=== PATIENT | female | born 1955 | race Caucasian/White ===

== ENCOUNTER 2019-06-11 18:13 | Inpatient (IN) | payer MEDICARE, OTHER ==
[~2019-06-11] VITALS: Ht 167.6 cm; Wt 68.2 kg
[2019-06-11] MEDS ORDERED: morphine 4 MG/ML inj SYRINge IV ONE (19:15)
[2019-06-11] MEDS ORDERED: ondansetron/PF 4mg/2ml inj IV ONE (19:15)
[2019-06-11] MEDS ORDERED: haloperidol lactate 5mg/ml inj IM ONE (19:55)
--- NOTE | 2019-06-11 20:07 | NUR ---
PATIENT'S DAUGHTER VI CALLED TO CHECK ON STATUS. UPDATE PROVIDED AT THIS TIME. CONTACT NUMBER: [phone]
[2019-06-11 20:28] LABS: BASOPHILS % (AUTO) 0.5 % (0-1); EOSINOPHILS # (AUTO) 0.2 X10'3 (0-0.9); EOSINOPHILS % (AUTO) 1.6 % (0-6); HEMATOCRIT 44.9 % (35.0-45.0); HEMOGLOBIN 15.3 g/dl (12.0-16.0); LYMPHOCYTES # (AUTO) 1.4 X10'3 (1.1-4.8); MEAN CORPUSCULAR HGB CONC 34.1 g/dL (33.0-36.5); MEAN CORPUSCULAR VOLUME 91.1 FL (78-98); MEAN PLATELET VOLUME 7.7 FL (7.4-10.4); MONOCYTES # (AUTO) 0.6 X10'3 (0-0.9); MONOCYTES % (AUTO) 6.6 % (2-12); NEUTROPHILS # (AUTO) 7.3 X10'3 (1.8-7.7); NEUTROPHILS % (AUTO) 76.3 % (42-75); PLATELET COUNT 304 X10'3 (140-440); RED BLOOD COUNT 4.93 X10'6 (4.20-5.60); RED CELL DISTRIBUTION WIDTH 12.7 % (11.5-14.5); WHITE BLOOD COUNT 9.6 X10'3 (4.5-11.0)
[2019-06-11 20:40] LABS: ALANINE AMINOTRANSFERASE 19 U/L (12-78); ALBUMIN 3.5 G/DL (3.4-5.0); ALBUMIN/GLOBULIN RATIO 0.8 (1.1-1.5); ALKALINE PHOSPHATASE 105 IU/L (46-116); ANION GAP 12 (8-16); ASPARTATE AMINO TRANSFERASE 23 U/L (10-37); BILIRUBIN,TOTAL 0.9 MG/DL (0.1-1.0); BLOOD UREA NITROGEN 20 MG/DL (7-18); BUN/CREATININE RATIO 31.3 (6.6-38.0); CALCIUM 9.9 MG/DL (8.5-10.1); CHLORIDE 105 MMOL/L (99-107); CREATININE 0.64 MG/DL (0.40-0.90); GLUCOSE 95 MG/DL (70-104); POTASSIUM 3.5 MMOL/L (3.5-5.1); SODIUM 140 MMOL/L (135-145); TOTAL CARBON DIOXIDE 23.5 MMOL/L (24-32); TOTAL PROTEIN 7.7 G/DL (6.4-8.2); eGFR > 90 ML/MIN
[2019-06-11 20:55] LABS: PARTIAL THROMBOPLASTIN TIME 28 SECONDS (22-32)
[2019-06-11] MEDS ORDERED: iohexol 300mg/ml 100ml inj. ONE (21:24)
[2019-06-11] MEDS ORDERED: LORazepam 2 mg/ml vial IM ONE (21:35)
--- NOTE | 2019-06-11 22:52 | NUR ---
UNABLE TO COMPLETE MED REC PATIENT IS NONCONTRIBUTORY AT THIS TIME. AWARE
[2019-06-11] MEDS ORDERED: acetaminophen 325mg tablet PO PRN (23:00)
[2019-06-11] MEDS ORDERED: albuterol 2.5 MG/3 ML nebule NEB PRN (23:00)
[2019-06-11] MEDS ORDERED: mag hydrox/Alum hydrox/simeth 30ml oral suspension PO PRN (23:00)
[2019-06-11] MEDS ORDERED: morphine 2 MG/ML inj. syringe IV PRN ×2 (23:00)
[2019-06-11] MEDS ORDERED: magnesium hydroxide 30ml (MOM) UD suspension PO PRN (23:00)
[2019-06-11] MEDS ORDERED: ondansetron/PF 4mg/2ml inj IV PRN (23:00)
[2019-06-11] MEDS: normal saline 1000ml 1,000 ML IV SCH (23:41)
[2019-06-12] VITALS (17 sets, daily range): BP systolic 112–175; BP diastolic 58–104
[2019-06-12 06:17] LABS: BASOPHILS # (AUTO) 0.1 X10'3 (0-0.2); BASOPHILS % (AUTO) 0.8 % (0-1); EOSINOPHILS # (AUTO) 0.2 X10'3 (0-0.9); HEMATOCRIT 41.4 % (35.0-45.0); HEMOGLOBIN 14.2 g/dl (12.0-16.0); LYMPHOCYTES # (AUTO) 1.9 X10'3 (1.1-4.8); LYMPHOCYTES % (AUTO) 24.7 % (21-51); MEAN CORPUSCULAR HEMOGLOBIN 31.2 PG (27.0-31.0); MEAN CORPUSCULAR HGB CONC 34.4 g/dL (33.0-36.5); MEAN CORPUSCULAR VOLUME 90.8 FL (78-98); MEAN PLATELET VOLUME 7.7 FL (7.4-10.4); MONOCYTES # (AUTO) 0.7 X10'3 (0-0.9); MONOCYTES % (AUTO) 8.8 % (2-12); NEUTROPHILS # (AUTO) 4.8 X10'3 (1.8-7.7); NEUTROPHILS % (AUTO) 62.7 % (42-75); PLATELET COUNT 262 X10'3 (140-440); RED BLOOD COUNT 4.56 X10'6 (4.20-5.60); RED CELL DISTRIBUTION WIDTH 12.7 % (11.5-14.5); WHITE BLOOD COUNT 7.7 X10'3 (4.5-11.0)
--- NOTE | 2019-06-12 06:21 | NUR ---
REPORT REC'D FROM LARRY BAILEY. PT UP TO FLOOR AND TRANSFERRED TO BED VIA SLIDE BOARD AND FOUR ATTENDANTS. PT IS VERY SEDATE AND UNABLE TO CONTRIBUTE TO ASSESSMENT AND DART ASSESS. PT HAS BEEN GIVEN A BED BATH AND PRE OP PREP FOR POSSIBLE SURGERY TODAY.
--- NOTE | 2019-06-12 06:23 | NUR ---
REPORT GIVEN TO LARRY BRAR.
--- NOTE | 2019-06-12 06:29 | NUR ---
Patient in room ORTHO 4023B. I have received report from LARRY CHATMAN and had the opportunity to ask questions and assume patient care.
[2019-06-12 06:40] LABS: ALANINE AMINOTRANSFERASE 18 U/L (12-78); ALBUMIN 2.7 G/DL (3.4-5.0); ALBUMIN/GLOBULIN RATIO 0.8 (1.1-1.5); ALKALINE PHOSPHATASE 89 IU/L (46-116); ANION GAP 11 (8-16); ASPARTATE AMINO TRANSFERASE 27 U/L (10-37); BILIRUBIN,TOTAL 0.7 MG/DL (0.1-1.0); BLOOD UREA NITROGEN 15 MG/DL (7-18); BUN/CREATININE RATIO 26.3 (6.6-38.0); CALCIUM 8.7 MG/DL (8.5-10.1); CHLORIDE 106 MMOL/L (99-107); CREATININE 0.57 MG/DL (0.40-0.90); GLUCOSE 83 MG/DL (70-104); POTASSIUM 3.8 MMOL/L (3.5-5.1); SODIUM 138 MMOL/L (135-145); TOTAL CARBON DIOXIDE 21.3 MMOL/L (24-32); TOTAL PROTEIN 6.3 G/DL (6.4-8.2); eGFR > 90 ML/MIN
[2019-06-12] MEDS: normal saline 1000ml 1,000 ML IV SCH ×2 (10:38→17:34)
[2019-06-12] MEDS: lisinopril 20mg tablet PO SCH (11:32)
[2019-06-12] MEDS ORDERED: LISI-600 PO (11:43)
[2019-06-12 12:01] LABS: CLARITY,URINE CLEAR (Clear); COLOR,URINE YELLOW (Yellow); GLUCOSE, URINE NEGATIVE (Neg); KETONES,URINE TRACE mg/dl (Neg); LEUKOCYTE ESTERASE ,URINE NEGATIVE (Neg); NITRITES, URINE NEGATIVE (Neg); OCCULT BLOOD,URINE TRACE-INTACT (Neg); PROTEIN,URINE NEGATIVE (Neg)
[2019-06-12 12:02] LABS: UA COLLECTION TYPE NON-SPECIFIED
[2019-06-12 12:08] LABS: MUCUS STRANDS FEW /LPF (Neg); SQUAMOUS EPITHELIAL CELL,UR FEW /LPF (FEW)
[2019-06-12 12:09] LABS: BACTERIA,URINE 1+ /HPF (Neg); RBC,URINE 0-2 /HPF (0-2); WBC,URINE 0-4 /HPF (0-4)
[2019-06-12 12:11] LABS: AMORPHOUS PHOSPHATES 1+
--- NOTE | 2019-06-12 12:52 | NUR ---
Problems reprioritized. Patient report given, questions answered & plan of care reviewed with LARRY Shaffer in recovery...Pt taken to OR for sx.
[2019-06-12] MEDS ORDERED: ringers solution, lacted 1,000 ML IV SCH (12:57)
[2019-06-12] MEDS ORDERED: morphine 2 MG/ML inj. syringe IV PRN (13:00)
[2019-06-12] MEDS ORDERED: ceFAZolin 1GM/D5W- ADD-VANTAGE 50 ML IV ONE (13:00)
[2019-06-12] MEDS ORDERED: labetalol 20mg/4ml (5mg/ml) syringe IV PRN (13:00)
[2019-06-12] MEDS ORDERED: morphine 4 MG/ML inj SYRINge IV PRN (13:00)
[2019-06-12] MEDS ORDERED: fentaNYL/PF 50MCG/1 ML 2ML syringe IV PRN ×2 (13:00)
[2019-06-12] MEDS ORDERED: hydrALAZINE 20mg/ml inj. IV PRN (13:00)
[2019-06-12] MEDS ORDERED: ondansetron/PF 4mg/2ml inj IV PRN (13:00)
[2019-06-12] MEDS ORDERED: fentaNYL/PF 50MCG/1 ML 2ML syringe ONE (13:13)
[2019-06-12] MEDS ORDERED: MIDAZolam 5mg/5ml vial ONE (13:13)
[2019-06-12] MEDS ORDERED: diphenhydrAMINE 50 mg/ml inj ONE (13:27)
[2019-06-12] MEDS ORDERED: propofol inj 20 ML IV ONE (13:28)
[2019-06-12] MEDS ORDERED: ceFAZolin 1000mg inj ONE ×2 (13:28)
[2019-06-12] MEDS ORDERED: LIDOcaine 2% (20mg/ml) 5ml vial ONE (13:34)
--- NOTE | 2019-06-12 14:37 | NUR ---
Received from OR via BED, accompanied by Anesthesiologist DR HOWARD and report given by Anesthesiologist. PT DROWSY, DENIE PAIN, RIGHT HIP/THIGH W/ISLAND DRSG CDI, MARTINEZ CATHETER TO GRAVITY DRAINAGE W/DARK YELLOW URINE IN BAG. PT W/SAB, DERMATOME LEVEL L-1, L-2. Addendum: 06/12/19 at 1512 by Ayah Solis RN Amended: Links added.
--- NOTE | 2019-06-12 15:27 | NUR ---
Report called to receiving nurse. Transferred via BED, 1 GOLD METAL CHAIR IS ONLY Belongings IN FRONT OF CHART SENT W/PT TO ROOM 4023B BY RN, RECEIVING RN AWARE OF PTS ARRIVAL. Special Issues communicated to receiving nurse. YES. Addendum: 06/12/19 at 1551 by Ayah Solis RN Amended: Links added.
--- NOTE | 2019-06-12 15:40 | NUR ---
Patient in room ORTHO 4023B. I have received report from LARRY PHELPS, RECOVER and had the opportunity to ask questions and assume patient care, PT RETURNED TO THE FLOOR IN STABLE CONDITION, INCISION SITE CDI.
[2019-06-12] MEDS: ceFAZolin 1GM/D5W- ADD-VANTAGE 50 ML IV SCH (17:46)
--- NOTE | 2019-06-12 19:10 | NUR ---
Patient in room ORTHO 4009. I have received report from Dariela JUAREZ and had the opportunity to ask questions and assume patient care. Pt broke IV into several pieces and is trying to remove the wedge from between her legs to get out of bed to "go outside and smoke a cigarette." She is very confused, seeing things on the rodriguez that aren't there and talking to her neighbor as if she is her daughter. Called Dr. Duron for order for restraints, sitter and ativan. Reoriented and distracted pt. Will continue to monitor.
[2019-06-12] MEDS ORDERED: enalaprilat dihydrate 2.5mg/2ml vial IV PRN (19:45)
[2019-06-12] MEDS: lactobacillus rhamnosus 10,000 MMU CELLS/CAPSULE PO SCH (19:56)
[2019-06-12] MEDS: LORazepam 1 MG tablet PO PRN (22:30)
[2019-06-13] VITALS (7 sets, daily range): BP systolic 96–170; BP diastolic 50–86
[2019-06-13] MEDS: ceFAZolin 1GM/D5W- ADD-VANTAGE 50 ML IV SCH ×3 (01:40→16:00)
[2019-06-13] MEDS ORDERED: LORazepam 2 mg/ml vial IV ONE (02:55)
[2019-06-13] MEDS: normal saline 1000ml 1,000 ML IV SCH ×2 (03:56→20:30)
[2019-06-13] MEDS ORDERED: HYDROcodone/acetaminophen 10/325mg tab PO PRN (05:25)
--- NOTE | 2019-06-13 06:17 | NUR ---
Problems reprioritized. Patient report given, questions answered & plan of care reviewed with Lidia JUAREZ.
[2019-06-13 06:24] LABS: BASOPHILS # (AUTO) 0.1 X10'3 (0-0.2); BASOPHILS % (AUTO) 0.6 % (0-1); EOSINOPHILS # (AUTO) 0.1 X10'3 (0-0.9); EOSINOPHILS % (AUTO) 0.9 % (0-6); HEMATOCRIT 37.7 % (35.0-45.0); HEMOGLOBIN 13.2 g/dl (12.0-16.0); LYMPHOCYTES # (AUTO) 1.1 X10'3 (1.1-4.8); LYMPHOCYTES % (AUTO) 11.6 % (21-51); MEAN CORPUSCULAR HEMOGLOBIN 31.3 PG (27.0-31.0); MEAN CORPUSCULAR HGB CONC 35.1 g/dL (33.0-36.5); MEAN CORPUSCULAR VOLUME 89.4 FL (78-98); MEAN PLATELET VOLUME 7.5 FL (7.4-10.4); MONOCYTES # (AUTO) 0.7 X10'3 (0-0.9); MONOCYTES % (AUTO) 8.1 % (2-12); NEUTROPHILS # (AUTO) 7.2 X10'3 (1.8-7.7); NEUTROPHILS % (AUTO) 78.8 % (42-75); PLATELET COUNT 272 X10'3 (140-440); RED BLOOD COUNT 4.22 X10'6 (4.20-5.60); RED CELL DISTRIBUTION WIDTH 12.1 % (11.5-14.5); WHITE BLOOD COUNT 9.1 X10'3 (4.5-11.0)
[2019-06-13 06:54] LABS: ALANINE AMINOTRANSFERASE 22 U/L (12-78); ALBUMIN 2.6 G/DL (3.4-5.0); ALBUMIN/GLOBULIN RATIO 0.8 (1.1-1.5); ALKALINE PHOSPHATASE 87 IU/L (46-116); ANION GAP 10 (8-16); ASPARTATE AMINO TRANSFERASE 27 U/L (10-37); BILIRUBIN,TOTAL 0.9 MG/DL (0.1-1.0); BLOOD UREA NITROGEN 7 MG/DL (7-18); BUN/CREATININE RATIO 14.3 (6.6-38.0); CALCIUM 8.6 MG/DL (8.5-10.1); CHLORIDE 102 MMOL/L (99-107); CREATININE 0.49 MG/DL (0.40-0.90); GLUCOSE 108 MG/DL (70-104); POTASSIUM 3.4 MMOL/L (3.5-5.1); SODIUM 134 MMOL/L (135-145); TOTAL CARBON DIOXIDE 22.1 MMOL/L (24-32); eGFR > 90 ML/MIN
[2019-06-13] MEDS: lactobacillus rhamnosus 10,000 MMU CELLS/CAPSULE PO SCH ×2 (10:13→20:30)
[2019-06-13] MEDS: lisinopril 20mg tablet PO SCH (10:13)
[2019-06-13] MEDS: enoxaparin 40mg/0.4ml syringe SQ SCH (10:13)
--- NOTE | 2019-06-13 12:18 | NUR ---
Patient in room ORTHO 4009. I have received report from Savannah JUAREZ and had the opportunity to ask questions and assume patient care.
[2019-06-13] MEDS: LORazepam 1 MG tablet PO PRN (20:30)
[2019-06-13] MEDS: HYDROcodone/acetaminophen 10/325mg tab PO PRN (20:30)
[2019-06-14] MEDS: normal saline 1000ml 1,000 ML IV SCH ×3 (00:56→23:00)
[2019-06-14] MEDS: HYDROcodone/acetaminophen 10/325mg tab PO PRN ×3 (04:50→20:03)
[2019-06-14 06:00] VITALS: BP 134/77
[2019-06-14 06:12] LABS: BASOPHILS % (AUTO) 0.5 % (0-1); EOSINOPHILS # (AUTO) 0.2 X10'3 (0-0.9); EOSINOPHILS % (AUTO) 2.2 % (0-6); HEMATOCRIT 36.8 % (35.0-45.0); HEMOGLOBIN 12.7 g/dl (12.0-16.0); LYMPHOCYTES # (AUTO) 1.5 X10'3 (1.1-4.8); LYMPHOCYTES % (AUTO) 17.2 % (21-51); MEAN CORPUSCULAR HEMOGLOBIN 30.9 PG (27.0-31.0); MEAN CORPUSCULAR HGB CONC 34.5 g/dL (33.0-36.5); MEAN CORPUSCULAR VOLUME 89.5 FL (78-98); MEAN PLATELET VOLUME 7.9 FL (7.4-10.4); MONOCYTES # (AUTO) 0.9 X10'3 (0-0.9); MONOCYTES % (AUTO) 9.9 % (2-12); NEUTROPHILS # (AUTO) 6.3 X10'3 (1.8-7.7); NEUTROPHILS % (AUTO) 70.2 % (42-75); PLATELET COUNT 291 X10'3 (140-440); RED BLOOD COUNT 4.11 X10'6 (4.20-5.60); RED CELL DISTRIBUTION WIDTH 12.6 % (11.5-14.5)
[2019-06-14 06:23] LABS: ALANINE AMINOTRANSFERASE 15 U/L (12-78); ALBUMIN 2.3 G/DL (3.4-5.0); ALBUMIN/GLOBULIN RATIO 0.7 (1.1-1.5); ALKALINE PHOSPHATASE 73 IU/L (46-116); ANION GAP 9 (8-16); ASPARTATE AMINO TRANSFERASE 16 U/L (10-37); BILIRUBIN,TOTAL 0.6 MG/DL (0.1-1.0); BLOOD UREA NITROGEN 9 MG/DL (7-18); BUN/CREATININE RATIO 14.5 (6.6-38.0); CALCIUM 8.6 MG/DL (8.5-10.1); CHLORIDE 102 MMOL/L (99-107); CREATININE 0.62 MG/DL (0.40-0.90); GLUCOSE 97 MG/DL (70-104); POTASSIUM 3.5 MMOL/L (3.5-5.1); SODIUM 136 MMOL/L (135-145); TOTAL CARBON DIOXIDE 25.3 MMOL/L (24-32); TOTAL PROTEIN 5.6 G/DL (6.4-8.2); eGFR > 90 ML/MIN
--- NOTE | 2019-06-14 06:58 | NUR ---
Problems reprioritized. Patient report given, questions answered & plan of care reviewed with Jane JUAREZ.
[2019-06-14] MEDS: lactobacillus rhamnosus 10,000 MMU CELLS/CAPSULE PO SCH ×2 (08:14→20:00)
[2019-06-14] MEDS: lisinopril 20mg tablet PO SCH (08:15)
[2019-06-14] MEDS: enoxaparin 40mg/0.4ml syringe SQ SCH (08:17)
[2019-06-14 11:00] VITALS: BP 103/63
--- NOTE | 2019-06-14 11:27 | NUR ---
Student documentation: I have reviewed all interventions, assessments performed and documented [facility] Student Medication Administration: For this medication-pass time frame, all medication were reviewed, dispensed, administered and documented per hospital policy by Filomenasavanna STANLEY [facility].
[2019-06-14 12:20] VITALS: BP 125/77
[2019-06-14 18:00] VITALS: BP 121/70
[2019-06-14 22:00] VITALS: BP 135/73
[2019-06-15 06:00] VITALS: BP 165/87
--- NOTE | 2019-06-15 06:25 | NUR ---
Problems reprioritized. Patient report given, questions answered & plan of care reviewed with LARRY Lara.
[2019-06-15 06:47] LABS: BASOPHILS # (AUTO) 0.1 X10'3 (0-0.2); BASOPHILS % (AUTO) 0.7 % (0-1); EOSINOPHILS # (AUTO) 0.2 X10'3 (0-0.9); EOSINOPHILS % (AUTO) 2.5 % (0-6); HEMATOCRIT 35.1 % (35.0-45.0); HEMOGLOBIN 12.2 g/dl (12.0-16.0); LYMPHOCYTES # (AUTO) 1.2 X10'3 (1.1-4.8); LYMPHOCYTES % (AUTO) 15.3 % (21-51); MEAN CORPUSCULAR HEMOGLOBIN 31.5 PG (27.0-31.0); MEAN CORPUSCULAR HGB CONC 34.9 g/dL (33.0-36.5); MEAN CORPUSCULAR VOLUME 90.2 FL (78-98); MEAN PLATELET VOLUME 8.1 FL (7.4-10.4); MONOCYTES # (AUTO) 0.6 X10'3 (0-0.9); MONOCYTES % (AUTO) 7.3 % (2-12); NEUTROPHILS # (AUTO) 5.8 X10'3 (1.8-7.7); NEUTROPHILS % (AUTO) 74.2 % (42-75); PLATELET COUNT 269 X10'3 (140-440); RED BLOOD COUNT 3.89 X10'6 (4.20-5.60); RED CELL DISTRIBUTION WIDTH 12.3 % (11.5-14.5); WHITE BLOOD COUNT 7.8 X10'3 (4.5-11.0)
[2019-06-15 06:53] LABS: ALANINE AMINOTRANSFERASE 16 U/L (12-78); ALBUMIN 2.3 G/DL (3.4-5.0); ALBUMIN/GLOBULIN RATIO 0.6 (1.1-1.5); ALKALINE PHOSPHATASE 77 IU/L (46-116); ANION GAP 8 (8-16); ASPARTATE AMINO TRANSFERASE 17 U/L (10-37); BILIRUBIN,TOTAL 0.5 MG/DL (0.1-1.0); BLOOD UREA NITROGEN 6 MG/DL (7-18); BUN/CREATININE RATIO 13.3 (6.6-38.0); CALCIUM 8.4 MG/DL (8.5-10.1); CHLORIDE 104 MMOL/L (99-107); CREATININE 0.45 MG/DL (0.40-0.90); GLUCOSE 94 MG/DL (70-104); POTASSIUM 3.4 MMOL/L (3.5-5.1); SODIUM 137 MMOL/L (135-145); TOTAL CARBON DIOXIDE 24.6 MMOL/L (24-32); TOTAL PROTEIN 5.9 G/DL (6.4-8.2); eGFR > 90 ML/MIN
[2019-06-15] MEDS: normal saline 1000ml 1,000 ML IV SCH (06:56)
[2019-06-15] MEDS: HYDROcodone/acetaminophen 10/325mg tab PO PRN ×3 (07:00→15:11)
[2019-06-15] MEDS: lactobacillus rhamnosus 10,000 MMU CELLS/CAPSULE PO SCH (07:03)
[2019-06-15] MEDS: enoxaparin 40mg/0.4ml syringe SQ SCH (07:04)
[2019-06-15] MEDS: lisinopril 20mg tablet PO SCH (07:06)
[2019-06-15] MEDS ORDERED: K and/or MAG REPLACEMENT MC SCH (09:15)
[2019-06-15] MEDS ORDERED: potassium Cl 20 mEq SR tablet PO PRN (09:15)
[2019-06-15] MEDS ORDERED: potassium CL 10mEq/100ml bag 100 ML IV PRN (09:15)
[2019-06-15 10:00] VITALS: BP 122/68
[2019-06-15] MEDS: potassium Cl 20 mEq SR tablet PO PRN ×2 (11:11→15:10)
[2019-06-15] MEDS ORDERED: ENOX40DI11 SQ (11:26)
--- NOTE | 2019-06-15 15:30 | NUR ---
Pt s/p R hip fracture repair hx dementia pending psych evaluation per EMR. Not appropriate for high protein ed at this time. Addendum: 06/15/19 at [address] Amended: Links added.
[2019-06-15] MEDS: LORazepam 1 MG tablet PO PRN (16:09)
--- NOTE | 2019-06-15 16:23 | NUR ---
attempt to call report to [facility]. No answer. Pt leaving via [facility] at this time
--- NOTE | 2019-06-15 16:39 | NUR ---
called report successfully to arabella Elias at [facility]
== END 2019-06-15 16:27 | DRG 470 ==
LOC: ER 18:14 → ED HOLD 23:12 → ORTHO 4S 23:27
PROVIDERS: ADMIT Internal Medicine; ATTEND Family Medicine
PROC: B42F1ZZ Computerized Tomography (CT Scan) of Right Lower Extremity Arteries using Low Osmolar Contrast (ICD-10-PCS; 2019-06-11)
PROC: 0SRR0J9 Replacement of Right Hip Joint, Femoral Surface with Synthetic Substitute, Cemented, Open Approach (ICD-10-PCS; principal; 2019-06-12 13:06)
DX: S72.001A Fracture of unspecified part of neck of right femur, initial encounter for closed fracture (principal); I10 Essential (primary) hypertension; F03.90 Unspecified dementia, unspecified severity, without behavioral disturbance, psychotic disturbance, mood disturbance, and anxiety; E87.6 Hypokalemia; F17.210 Nicotine dependence, cigarettes, uncomplicated; W18.39XA Other fall on same level, initial encounter; Y93.89 Activity, other specified; Y92.89 Other specified places as the place of occurrence of the external cause; Y99.8 Other external cause status
CPT/HCPCS: 36415; 71045; 73502; 73701; 80053; 81001; 83735; 85025; 85610; 85730; 86885; 86900; 86901; 87081; 93005; 94760; 96372; 96374; 96375; 97110; 97116; 97161; 97530; 99285; A4618; A6222; A6258; A6449; A6454; A7000; C1713; C1776; G0378; J0690; J1200; J1630; J1650; J2001; J2060; J2250; J2270; J2405; J2704; J3010; J7030; J7120; Q9967